=== PATIENT | female | born 2000 | race Caucasian/White ===

== ENCOUNTER 2024-08-14 02:25 | Emergency (ER) | payer BC ==
[2024-08-14] MEDS ORDERED: NA CHLORIDE 0.9% 1,000 ML ONE ×2 (02:46→03:28)
[2024-08-14 03:17] LABS: Absolute Eosinophils 0.1 K/uL (0-0.5); Absolute Lymphocytes (CBC) 2.2 K/uL (0.7-4.9); Absolute Monocytes 0.7 K/uL (0.1-1.3); Absolute Neutrophil 6.2 K/uL (1.8-8.0); Basophils % 0.5 % (0-1.3); Eosinophils % 0.8 % (0-4.4); Hematocrit 44.6 % (36.0-45.0); Hemoglobin 15.6 g/dL (12.0-15.0); Lymphocytes % 23.8 % (15.3-44.8); MCH 29.9 pg (27.0-35.0); MCHC 34.9 g/dL (32.0-36.0); MCV 85.6 fL (80-100); MPV 7.4 fL (7.6-11.3); Neutrophils % 66.9 % (41.7-73.7); Nucleated Red Blood Cells % 0.1 % (0-0); Platelets 445 thou/uL (152-406); RBC Red Blood Cell Count 5.21 M/uL (3.86-4.86); Red Cell Distribution Width 13.2 % (12.1-15.2)
[2024-08-14 03:38] LABS: Anion Gap 11.1 mEq/L (5.0-15.0)
[2024-08-14 03:39] LABS: Potassium 3.1 mEq/L (3.5-5.1)
--- NOTE | 2024-08-14 05:52 | ER ---
Nurse's Notes [facility] Name: Court Carlton Age: 23 yrs Sex: Female : 2000 Arrival Date: 08/14/2024 Time: 02:25 Bed 13 Private MD: Diagnosis: Hypovolemia;Syncopal episode, acute hypokalemia Presentation: 08/14 02:30 Chief complaint: EMS states: Pt has been sick for 4 days with vomiting and diarrhea, vc1 and was having some alcoholic drinks tonight. She stood up and passed out hitting her head. Coronavirus screen: Client denies travel out of the [place] in the last 14 days. At this time, the client does not indicate any symptoms associated with coronavirus-19. Ebola Screen: Patient negative for fever greater than or equal to 101.5 degrees Fahrenheit, and additional compatible Ebola Virus Disease symptoms Patient denies exposure to infectious person. Patient denies travel to an Ebola-affected area in the 21 days before illness onset. No symptoms or risks identified at this time. Initial Sepsis Screen: Does the patient meet any 2 criteria? No. Patient's initial sepsis screen is negative. Does the patient have a suspected source of infection? No. Patient's initial sepsis screen is negative. Risk Assessment: Do you want to hurt yourself or someone else? Patient reports no desire to harm self or others. Onset of symptoms was August 14, 2024. Care prior to arrival: Medication(s) given: Normal saline infusion, 1000 mL, IV initiated. 20 GA, in the left hand. 02:30 Method Of Arrival: EMS: [facility] vc1 02:30 Acuity: MORRIS 3 vc1 Triage Assessment: 02:41 General: Appears in no apparent distress. uncomfortable, obese, well developed, vc1 Behavior is calm, cooperative, appropriate for age. Pain: Denies pain. EENT: No deficits noted. No signs and/or symptoms were reported regarding the EENT system. Neuro: Hammer Agitation-Sedation Scale (RASS): 0 - Alert and Calm Reports a syncopal episode. Cardiovascular: Capillary refill < 3 seconds Patient's skin is warm and dry. Respiratory: Airway is patent Respiratory effort is even, unlabored, Respiratory pattern is regular, symmetrical. GI: Abdomen is obese, Reports diarrhea, nausea, vomiting. : No deficits noted. No signs and/or symptoms were reported regarding the genitourinary system. Derm: Skin is intact, is healthy with good turgor, Skin is dry, Skin is normal, Skin temperature is warm. Musculoskeletal: Circulation, motion, and sensation intact. Range of motion: intact in all extremities. 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 - Infectious Disease History:: Denies. - Social history:: Smoking status: Reported history of juuling and/or vaping. - Family history:: not pertinent. Screenin:40 [facility] ED Fall Risk Assessment (Adult) History of falling in the last 3 months, vc1 including since admission Yes- physiologic fall (2 pts) Confusion or Disorientation No (0 pts) Intoxicated or Sedated Yes (3 pts) Impaired Gait No (0 pts) Mobility Assist Device Used No (0 pt) Altered Elimination No (0 pt) Score/Fall Risk Level 3 or more points = High Risk Oriented to surroundings, Maintained a safe environment, Educated pt \T\ family on fall prevention, incl call for assistance when getting out of bed. Abuse screen: Denies threats or abuse. Nutritional screening: No deficits noted. Tuberculosis screening: No symptoms or risk factors identified. Assessment: 02:45 General: Appears in no apparent distress. Behavior is calm, cooperative. Pain: Denies kj2 pain. Neuro: Level of Consciousness is awake, alert, obeys commands, Oriented to person, place, time, situation. Cardiovascular: Patient's skin is warm and dry. Respiratory: Airway is patent. GI: Reports nausea. : No signs and/or symptoms were reported regarding the genitourinary system. 02:45 Cardiovascular: Rhythm is sinus tachycardia. vc1 03:45 Reassessment: Patient appears in no apparent distress at this time. Patient and/or kj2 family updated on plan of care and expected duration. Pain level reassessed. Patient is alert, oriented x 3, equal unlabored respirations, skin warm/dry/pink. 04:45 Reassessment: Patient appears in no apparent distress at this time. Patient and/or kj2 family updated on plan of care and expected duration. Pain level reassessed. Patient is alert, oriented x 3, equal unlabored respirations, skin warm/dry/pink. 05:42 Reassessment: Patient appears in no apparent distress at this time. Patient and/or kj2 family updated on plan of care and expected duration. Pain level reassessed. Patient is alert, oriented x 3, equal unlabored respirations, skin warm/dry/pink. Vital Signs: 02:30 BP 99 / 57; Pulse 103; Resp 16; Temp 97.5; Pulse Ox 99% ; Weight 154.22 kg; Height 5 vc1 ft. 8 in. ; Pain 0/10; 04:00 BP 121 / 64; Pulse 102; Resp 18; Pulse Ox 100% ; kj2 05:03 BP 130 / 55; Pulse 96; Resp 18; Pulse Ox 99% ; kj2 05:53 BP 126 / 66; Pulse 94; Resp 18; Temp 98.2; Pulse Ox 99% on R/A; kj2 06:01 BP 135 / 78; Pulse 88; Resp 18; Pulse Ox 100% on R/A; kj2 02:30 Body Mass Index 51.70 (154.22 kg, 172.72 cm) vc1 02:30 Pain Scale: Adult vc1 [place] Coma Score: 05:47 Eye Response: spontaneous(4). Motor Response: obeys commands(6). Verbal Response: sp4 oriented(5). Total: 15. ED Course: 02:30 Patient arrived in ED. vc1 02:34 Franko Ramirez MD is Attending Physician. sp4 02:35 Triage completed. vc1 02:40 Arm band placed on right wrist. vc1 02:41 Patient has correct armband on for positive identification. Bed in low position. Call vc1 light in reach. quality assurance monitor final on. Pulse ox on. NIBP on. 02:45 Provided Education on: call light. kj2 02:45 Maintain EMS IV. Dressing intact. Good blood return noted. Site clean \T\ dry. Gauge \T\ vc 1 site: 20G Left hand. Flushed with 10 mL NS. 02:57 Penny Mcdonald, RN is Primary Nurse. kj2 02:58 Basic Metabolic Panel Sent. oe 02:58 CBC with Diff Sent. oe 03:06 EKG done, by ED staff, reviewed by Franko Ramirez MD. oe 03:29 No provider procedures requiring assistance completed. vc1 05:55 IV discontinued, intact, bleeding controlled, No redness/swelling at site. Pressure kj2 dressing applied. Administered Medications: 03:01 Drug: NS 0.9% IV 1000 ml IV at 1 bolus Per protocol; to be given as a bolus over 60 kj2 minutes Route: IV; Rate: 1 bolus; Site: left hand; 04:00 Follow up: Response: No adverse reaction; IV Status: Completed infusion; IV Intake: kj2 1000ml 03:25 Drug: NS 0.9% IV 1000 ml IV at 1 bolus Per protocol; to be given as a bolus over 60 kj2 minutes Route: IV; Rate: 1 bolus; Site: left hand; 04:25 Follow up: IV Status: Completed infusion; IV Intake: 1000ml kj2 Medication: 02:41 VIS not applicable for this client. vc1 Point of Care Testing: Blood Glucose: 03:08 Blood Glucose: 92 mg/dL; kj2 Ranges: Intake: 04:00 IV: 1000ml; Total: 1000ml. kj2 04:25 IV: 1000ml; Total: 2000ml. kj2 Outcome: 05:52 Discharge ordered by . sp4 05:55 Discharged to home ambulatory, kj2 05:55 Condition: stable 05:55 Discharge instructions given to patient, Instructed on discharge instructions, follow up and referral plans. Demonstrated understanding of instructions, follow-up care, 06:03 Patient left the ED. kj2 Signatures: [place] Cordon Vanessa, RN RN vc1 Franko Ramirez MD MD spPenny Almanzar, ESTELA RN kj2 Corrections: (The following items were deleted from the chart) 02:40 02:35 Home Meds: None; vc1 vc1
--- NOTE | 2024-08-14 05:52 | EDPHYS ---
Physician Documentation [facility] Name: Court Carlton Age: 23 yrs Sex: Female : 2000 Arrival Date: 08/14/2024 Time: 02:25 Bed 13 Private MD: ED Physician Franko Ramirez HPI: 08/14 05:46 This 23 yrs old Female presents to ER via EMS with complaints of Syncope. 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 - Infectious Disease History:: Denies. - Social history:: Smoking status: Reported history of juuling and/or vaping. - Family history:: not pertinent. ROS: 05:51 Constitutional: Negative for fever, chills, and weight loss, positive for syncope sp4 05:51 All other systems are negative, Exam: 05:47 Constitutional: This is a well developed, well nourished patient who is awake, alert, sp4 and in no acute distress. Head/Face: Normocephalic, atraumatic. Eyes: Pupils equal round and reactive to light, extra-ocular motions intact. Lids and lashes normal. Conjunctiva and sclera are not injected. Cornea within normal limits. Periorbital areas with no swelling, redness, or edema. ENT: Nares patent. No nasal discharge, no septal abnormalities noted. Tympanic membranes are normal and external auditory canals are clear. Oropharynx with no redness, swelling, or masses, exudates, or evidence of obstruction, uvula midline. Mucous membranes moist. Neck: Trachea midline, no thyromegaly or masses palpated, and no cervical lymphadenopathy. Supple, full range of motion without nuchal rigidity, or vertebral point tenderness. Chest/axilla: Normal chest wall appearance and motion. Nontender with no deformity. No lesions are appreciated. Cardiovascular: Regular rate and rhythm with a normal S1 and S2. No gallops, murmurs, or rubs. Normal PMI, no JVD. No pulse deficits. Respiratory: Lungs have equal breath sounds bilaterally, clear to auscultation and percussion. No rales, rhonchi or wheezes noted. No increased work of breathing, no retractions or nasal flaring. Abdomen/GI: Soft, with normal bowel sounds. No distension or tympany. No guarding or rebound. No evidence of tenderness throughout. Back: No spinal tenderness. No costovertebral tenderness. Skin: Warm, dry with normal turgor. Normal color with no rashes, no lesions, and no evidence of cellulitis. MS/ Extremity: Pulses equal, no cyanosis. Neurovascular intact. Full, normal range of motion. Neuro: Awake and alert, GCS 15, oriented to person, place, time, and situation. Cranial nerves II-XII grossly intact. Motor strength 5/5 in all extremities. Sensory grossly intact. Psych: Awake, alert, with orientation to person, place and time. Behavior, mood, and affect are within normal limits 05:47 ECG was reviewed by the Attending Physician. EKG 0303 Vital Signs: 02:30 BP 99 / 57; Pulse 103; Resp 16; Temp 97.5; Pulse Ox 99% ; Weight 154.22 kg; Height 5 vc1 ft. 8 in. ; Pain 0/10; 04:00 BP 121 / 64; Pulse 102; Resp 18; Pulse Ox 100% ; kj2 05:03 BP 130 / 55; Pulse 96; Resp 18; Pulse Ox 99% ; kj2 05:53 BP 126 / 66; Pulse 94; Resp 18; Temp 98.2; Pulse Ox 99% on R/A; kj2 06:01 BP 135 / 78; Pulse 88; Resp 18; Pulse Ox 100% on R/A; kj2 02:30 Body Mass Index 51.70 (154.22 kg, 172.72 cm) vc1 02:30 Pain Scale: Adult vc1 [place] Coma Score: 05:47 Eye Response: spontaneous(4). Motor Response: obeys commands(6). Verbal Response: sp4 oriented(5). Total: 15. MDM: 02:35 Medical Screening Exam initiated sp4 05:47 Differential Diagnosis: drug effect, emotional response, idiopathic syncope, pseudo sp4 seizure, vasovagal episode. Data reviewed: vital signs, nurses notes, EMS record, lab test result(s), EKG. Consideration of Admission/Observation Escalation of care including admission/observation considered. ED course: Patient felt much improved after IV fluids. She was able to stand up and walk about without getting dizzy. Patient is stable for discharge home. Will recommend bedrest and increase p.o. fluids today. Will advised to eat few bananas to supplement potassium. . 08/14 02:34 Order name: Basic Metabolic Panel; Complete Time: 05:42 sp4 08/14 02:34 Order name: CBC with Diff; Complete Time: 05:42 sp4 08/14 02:34 Order name: Alcohol Level; Complete Time: 05:42 sp4 08/14 02:34 Order name: Test, Serum; Complete Time: 05:42 sp4 08/14 03:06 Order name: Glucose, Ancillary Testing; Complete Time: 05:42 EDMS 08/14 02:34 Order name: EKG - Nurse/Tech; Complete Time: 03:03 sp4 08/14 02:34 Order name: IV Saline Lock; Complete Time: 03:03 sp4 08/14 02:34 Order name: Labs collected and sent; Complete Time: 02:58 sp4 08/14 02:34 Order name: O2 Per Protocol; Complete Time: 02:59 sp4 08/14 02:34 Order name: O2 Sat Monitoring; Complete Time: 02:59 sp4 EC:47 Rate is 97 beats/min. Rhythm is regular, Normal Sinus Rhythm. QRS [place] is Normal. [place] sp4 interval is normal. QRS interval is normal. QT interval is normal. No Q waves. T waves are Normal. No ST changes noted. Clinical impression: No evidence of ischemia. Interpreted by me. Reviewed by me. Administered Medications: 03:01 Drug: NS 0.9% IV 1000 ml IV at 1 bolus Per protocol; to be given as a bolus over 60 kj2 minutes Route: IV; Rate: 1 bolus; Site: left hand; 04:00 Follow up: Response: No adverse reaction; IV Status: Completed infusion; IV Intake: kj2 1000ml 03:25 Drug: NS 0.9% IV 1000 ml IV at 1 bolus Per protocol; to be given as a bolus over 60 kj2 minutes Route: IV; Rate: 1 bolus; Site: left hand; 04:25 Follow up: IV Status: Completed infusion; IV Intake: 1000ml kj2 Point of Care Testing: Blood Glucose: 03:08 Blood Glucose: 92 mg/dL; kj2 Ranges: Critical Glucose Levels:Adult <50 mg/dl or >400 mg/dl <40 mg/dl or >180 mg/dl Disposition Summary: 08/14/24 05:52 Discharge Ordered Problem: new sp4 Symptoms: have improved sp4 Condition: Stable sp4 Diagnosis - Hypovolemia sp4 - Syncopal episode, acute hypokalemia sp4 Followup: sp4 - With: Private Physician - When: 7 - 10 days - Reason: Recheck today's complaints Discharge Instructions: - Discharge Summary Sheet sp4 - Dehydration, Adult, [id number] sp4 Forms: - Patient Portal Instructions sp4 Signatures: Dispatcher [employer] EDTiffany Shook RN RN vc1 Franko Ramirez MD MD sp4 Penny Mcdonald RN RN kj2 Corrections: (The following items were deleted from the chart) 02:35 02:35 TEST, [id number]+[id number] ordered. EDWI EDMS 02:40 02:35 Home Meds: None; vc1 vc1
[2024-08-14 12:18] VITALS: TEMP 98.2
[2024-08-14 12:20] VITALS: BP 135/78; O2SAT 100
--- NOTE | 2024-08-14 12:39 | EKG ---
Test Date: 2024-08-14 Test Time: 03:03:29 Apparel Manufacture Instructor: ANDERS MEASUREMENT RESULTS: Intervals: Rate: 97 KS: 148 QRSD: 116 QT: 340 QTc: 431 [place]: P: 62 KS: 148 QRS: -17 T: 60 INTERPRETIVE STATEMENTS: Normal sinus rhythm Nonspecific T wave abnormality Abnormal ECG No previous ECG available for comparison Electronically Signed On 08-14-24 12:38:51 LEAD LEVEL DESIGNER by Mason Sutherland
== END 2024-08-14 06:03 | disposition home or self-care (01) ==
LOC: ER 02:25
DX: E86.1 Hypovolemia (principal); E87.6 Hypokalemia; I10 Essential (primary) hypertension
CPT/HCPCS: 93005; 85025; 80048; 36415; 84703; 82947; 96360; 99285; 82077; J7030 ×2